=== PATIENT | female | born 1965 | race Caucasian/White ===

== ENCOUNTER 2023-03-19 22:48 | Emergency (ER) | payer MEDICAID ==
[~2023-03-19] VITALS: Ht 147 cm; Wt 79.3 kg
[2023-03-19] MEDS ORDERED: NS IV 1000 ML 1,000 ML IV STA (23:12)
--- NOTE | 2023-03-19 23:12 | ED General ---
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 She believes she could have gotten around some mold in the house. Denies any chest pain, abdominal pain, dysuria/urinary frequency, focal weakness or numbness, severe headache, neck stiffness, or any other concerns. She has been eating and drinking normally. Last had Tylenol and ibuprofen earlier on in the morning. Allergies and Home Medications Allergies Coded Allergies: No Known Drug Allergies (Unverified , 03/19/23) Patient Home Medication List Home Medication List Reviewed: Yes Review of Systems Review of Systems Constitutional: chills, malaise EENTM: no symptoms reported Respiratory: see HPI Cardiovascular: no symptoms reported Gastrointestinal: see HPI Genitourinary: no symptoms reported Musculoskeletal: no symptoms reported Skin: pruritus, rash Psychiatric/Neurological: No Symptoms Reported Past Ygvesab-Kmmezv-Fufqxh Hx Patient Social History Tobacco Use?: No Past Medical History Surgeries: Yes Orthopedic Physical Exam Vital Signs Vital Signs - First Documented 03/19/23 22:58 Temp 38.1 Pulse 126 Resp 24 B/P (MAP) 117/81 (93) Pulse Ox 98 O2 Delivery Room Air Capillary Refill : Height, Weight, BMI Height: '" Weight: lbs. oz. kg; BMI Method: General Appearance: No Apparent Distress, WD/WN Eyes: Bilateral Eye Normal Inspection HEENT: PERRL/EOMI, Normal ENT Inspection, Pharynx Normal Neck: Full Range of Motion, Normal Inspection, Non Tender, Supple Respiratory: Chest Non Tender, Lungs Clear, Normal Breath Sounds, No Accessory Muscle Use, No Respiratory Distress Cardiovascular: No Edema, Normal Peripheral Pulses, Tachycardia Gastrointestinal: Normal Bowel Sounds, Non Tender, Soft; No Distended, No Guarding Back: Normal Inspection, No CVA Tenderness, No Vertebral Tenderness Extremity: Normal Capillary Refill, Normal Inspection, Normal Range of Motion, Non Tender, No Calf Tenderness, No Pedal Edema Neurologic/Psychiatric: Alert, Oriented x3, No Motor/Sensory Deficits Skin: Warm/Dry, Rash (urticarial rash mostly along her extremities) Progress/Results/Core Measures Suspected Sepsis SIRS Temperature: Pulse: Respiratory Rate: Laboratory Tests 03/19/23 23:04: White Blood Count 8.4 Blood Pressure / Mean: Laboratory Tests 03/19/23 23:04: Creatinine 0.95, Platelet Count 326, Total Bilirubin 0.4 Results/Orders Lab Results Laboratory Tests Test 03/19/23 23:04 Range/Units White Blood Count 8.4 4.3-11.0 10^3/uL Red Blood Count 4.63 3.80-5.11 10^6/uL Hemoglobin 13.4 11.5-16.0 g/dL Hematocrit 41 35-52 % Mean Corpuscular Volume 88 80-99 fL Mean Corpuscular Hemoglobin 29 25-34 pg Mean Corpuscular Hemoglobin Concent 33 32-36 g/dL Red Cell Distribution Width 13.1 10.0-14.5 % Platelet Count 326 130-400 10^3/uL Mean Platelet Volume 9.2 9.0-12.2 fL Immature Granulocyte % (Auto) 0 % Neutrophils (%) (Auto) 76 H 42-75 % Lymphocytes (%) (Auto) 17 12-44 % Monocytes (%) (Auto) 6 0-12 % Eosinophils (%) (Auto) 0 0-10 % Basophils (%) (Auto) 0 0-10 % Neutrophils # (Auto) 6.4 1.8-7.8 10^3/uL Lymphocytes # (Auto) 1.4 1.0-4.0 10^3/uL Monocytes # (Auto) 0.5 0.0-1.0 10^3/uL Eosinophils # (Auto) 0.0 0.0-0.3 10^3/uL Basophils # (Auto) 0.0 0.0-0.1 10^3/uL Immature Granulocyte # (Auto) 0.0 0.0-0.1 10^3/uL Sodium Level 135 135-145 MMOL/L Potassium Level 3.9 3.6-5.0 MMOL/L Chloride Level 103 98-107 MMOL/L Carbon Dioxide Level 20 L 21-32 MMOL/L Anion Gap 12 5-14 MMOL/L Blood Urea Nitrogen 15 7-18 MG/DL Creatinine 0.95 0.60-1.30 MG/DL Estimat Glomerular Filtration Rate 70 BUN/Creatinine Ratio 16 Glucose Level 95 70-105 MG/DL Calcium Level 9.0 8.5-10.1 MG/DL Corrected Calcium 9.1 8.5-10.1 MG/DL Magnesium Level 1.7 1.6-2.4 MG/DL Total Bilirubin 0.4 0.1-1.0 MG/DL Aspartate Amino Transf (AST/SGOT) 21 5-34 U/L Alanine Aminotransferase (ALT/SGPT) 20 0-55 U/L Alkaline Phosphatase 128 40-136 U/L Total Protein 7.5 6.4-8.2 GM/DL Albumin 3.9 3.2-4.5 GM/DL Lipase 40 8-78 U/L Influenza Type A (RT-PCR) Not Detected Not Detecte Influenza Type B (RT-PCR) Not Detected Not Detecte SARS-CoV-2 RNA (RT-PCR) Not Detected Not Detecte My Orders Orders - JOSE ANTONIO COX MD Cbc With Automated Diff (03/19/23 23:07) Comprehensive Metabolic Panel (03/19/23 23:07) Magnesium (03/19/23 23:07) Chest 1 View, Ap/Pa Only (03/19/23 23:07) Ekg Tracing (03/19/23 23:07) Covid 19 Inhouse Test (03/19/23 23:07) Influenza A And B By Pcr (03/19/23 23:07) Lipase (03/19/23 23:12) Ed Iv/Invasive Line Start (03/19/23 23:12) Ns Iv 1000 Ml (Sodium Chloride 0.9%) (03/19/23 23:12) Acetaminophen Tablet (Acetaminophen Ta (03/19/23 23:15) Ibuprofen Tablet (Motrin Tablet) (03/19/23 23:15) Ondansetron Injection (Zofran Injectio (03/19/23 23:15) Medications Given in ED Current Medications Medications Dose Ordered Sig/Francisco Route Start Time Stop Time Status Last Admin Dose Admin Acetaminophen 1,000 mg ONCE ONCE PO 03/19/23 23:15 03/19/23 23:16 DC 03/19/23 23:30 1,000 MG Ibuprofen 600 mg ONCE ONCE PO 03/19/23 23:15 03/19/23 23:16 DC 03/19/23 23:30 600 MG Ondansetron HCl 4 mg ONCE ONCE IVP 03/19/23 23:15 03/19/23 23:16 DC 03/19/23 23:30 4 MG Vital Signs/I&O 03/19/23 03/19/23 03/19/23 22:58 23:30 23:30 Temp 38.1 38.1 38.1 Pulse 126 Resp 24 B/P (MAP) 117/81 (93) Pulse Ox 98 O2 Delivery Room Air Capillary Refill : Progress Note : Progress Note 57-year-old female with above history coming in due to dyspnea, chills, general malaise. She was tachycardic on presentation and febrile. Otherwise oxygen saturation was normal and blood pressure unremarkable. EKG ordered and interpreted by me showing sinus rhythm with no acute ischemic changes. She was given Tylenol and ibuprofen for fever. An IV was placed and basic labs were ob tained as well and were significant for normal white blood cell count, normal creatinine, normal electrolytes, negative COVID test. Chest x-ray ordered and interpreted by me showing no obvious pneumonia, normal cardiac silhouette, no pneumothorax. Symptoms are consistent with a viral illness, and otherwise she is nontoxic-appearing. Heart rate improved after fluids and with her temperature coming down. I believe she is otherwise stable for discharge with outpatient follow-up. She was sent home with strict return precautions ECG Initial ECG Impression Date: Mar 19, 2023 Initial ECG Impression Time: 23:19 Initial ECG Rate: 109 Initial ECG Rhythm: S.Tach Comment Narrow QRS, normal axis, no significant ST changes or T wave abnormalities Departure Impression Primary Impression: Viral syndrome Additional Impression: Fever Qualified Codes: R50.9 - Fever, unspecified Disposition: 01 HOME, SELF-CARE Condition: Stable Departure-Patient Inst. Decision time for Depature: 23:55 Referrals: [facility] [place] (PCP/Family) Primary Care Physician Patient Instructions: Upper Respiratory Infection ED Add. Discharge Instructions: Your symptoms are consistent with a viral upper respiratory infection that is more similar to a flu and symptoms. Fortunately, the flu and COVID test we did here were negative. Your chest x-ray looks clear with no obvious pneumonia or severe infection in your lungs. Your labs were reassuring as well and it does not appear like you are septic at this time. Continue to take ibuprofen and/or Tylenol as needed for fever and body aches. Please follow back up with your regular doctor if you are not seeing improvement in the next couple of days. Nausea medicines will be sent to your pharmacy for you to take if needed. Scripts Ondansetron (Ondansetron Odt) 4 Mg Tab.rapdis 4 MG SL Q6H PRN for NAUSEA/VOMITING for 5 Days, #20 TAB Prov: JOSE ANTONIO COX MD 03/19/23 Work/School Note: Work Release Form Date Seen in the Emergency Department: Mar 19, 2023 Return to Work: Mar 21, 2023 Restrictions: Return-No Fever (24hrs) JOSE ANTONIO COX MD Mar 19, 2023 23:12
[2023-03-19] MEDS ORDERED: ONDANSETRON 4 MG/2 ML (SDV) Z0FRAN IVP ONE (23:15)
[2023-03-19] MEDS ORDERED: ACETAMINOPHEN 500 MG TABLET PO ONE (23:15)
[2023-03-19] MEDS ORDERED: IBUPROFEN 600 MG (MOTRIN) TAB PO ONE (23:15)
[2023-03-19 23:21] LABS: BASOPHILS % (AUTO) 0 % (0-10); EOSINOPHILS % (AUTO) 0 % (0-10); HEMATOCRIT 41 % (35-52); HEMOGLOBIN 13.4 g/dL (11.5-16.0); LYMPHOCYTES # (AUTO) 1.4 10^3/uL (1.0-4.0); LYMPHOCYTES % (AUTO) 17 % (12-44); MEAN CORPUSCULAR HEMOGLOBIN 29 pg (25-34); MEAN CORPUSCULAR HGB CONC 33 g/dL (32-36); MEAN CORPUSCULAR VOLUME 88 fL (80-99); MEAN PLATELET VOLUME 9.2 fL (9.0-12.2); MONOCYTES # (AUTO) 0.5 10^3/uL (0.0-1.0); MONOCYTES % (AUTO) 6 % (0-12); NEUTROPHILS # (AUTO) 6.4 10^3/uL (1.8-7.8); NEUTROPHILS % (AUTO) 76 % (42-75); PLATELET COUNT 326 10^3/uL (130-400); WHITE BLOOD COUNT 8.4 10^3/uL (4.3-11.0)
[2023-03-19 23:35] LABS: ALBUMIN 3.9 GM/DL (3.2-4.5); POTASSIUM 3.9 MMOL/L (3.6-5.0)
[2023-03-19 23:37] LABS: TOTAL PROTEIN 7.5 GM/DL (6.4-8.2)
[2023-03-19 23:39] LABS: BILIRUBIN,TOTAL 0.4 MG/DL (0.1-1.0)
[2023-03-19 23:41] LABS: CREATININE SERUM 0.95 MG/DL (0.60-1.30)
[2023-03-19 23:44] LABS: MAGNESIUM 1.7 MG/DL (1.6-2.4)
[2023-03-19] MEDS ORDERED: ONDA4TAB11 SL (23:52)
[2023-03-20 00:04] VITALS: BP 116/83
--- NOTE | 2023-03-20 07:57 | Diagnostic Imaging Report ---
EXAMINATION: Chest radiograph, portable AP view. DATE: 03/19/2023 11:21 PM INDICATION: 57-year-old female, fever and shortness of breath. COMPARISON: None. FINDINGS: Heart size and mediastinal contours are unremarkable. There is no identified pneumothorax. There is no large pleural effusion. There is no identified focal airspace consolidation. There is calcific attenuation adjacent to the right humeral head compatible with calcific tendinitis/bursitis. IMPRESSION: 1. No identified acute cardiopulmonary abnormality. Dictated by: Dictated on workstation # [id number]
== END 2023-03-20 00:04 | disposition home or self-care (01) ==
LOC: ER 22:55
DX: B34.9 Viral infection, unspecified (principal); R50.9 Fever, unspecified; R00.0 Tachycardia, unspecified; Z20.822 Contact with and (suspected) exposure to COVID-19
CPT/HCPCS: 36415; 71045; 80053; 83690; 83735; 85025; 87040; 87636; 93005; 96361; 96374